=== PATIENT | female | born 1950 | race Caucasian/White ===

== ENCOUNTER → 2018-08-11 | Outpatient (CLI) | payer MEDICARE, OTHER ==
[~2018-08-11] MED LIST: ASPIR 8181 MG; FISH OIL 1,001000 M2; FLEXERIL PO; GLIPIZIDE5 MG; METFORMIN HCL500 MG
== END ==
LOC: M.RAD 10:29
DX: Z12.31 Encounter for screening mammogram for malignant neoplasm of breast (principal)

== ENCOUNTER → 2019-09-04 | Outpatient (CLI) | payer MEDICARE, OTHER | LOC: M.RAD 08-30 13:57 | DX: N60.01 Solitary cyst of right breast (principal) ==